=== PATIENT | male | born 1995 | race Caucasian/White ===

== ENCOUNTER 2017-06-13 17:04 | Emergency (ER) | payer OTHER ==
[~2017-06-13] VITALS: Ht 172.7 cm; Wt 70.4 kg
[2017-06-13 17:07] VITALS: Ht 172.7 cm; Wt 70.4 kg
[2017-06-13 20:37] VITALS: BP 115/56
== END 2017-06-13 20:37 | disposition home or self-care (01) ==
LOC: ED 17:04 → EDBD 17:04 → ED 20:37
DX: J06.9 Acute upper respiratory infection, unspecified (principal); J45.909 Unspecified asthma, uncomplicated
CPT/HCPCS: 87804; J7512; J7613; J7644